=== PATIENT | female | born 1980 | race Caucasian/White ===

== ENCOUNTER 2017-06-18 15:21 | Inpatient (IN) | payer OTHER ==
[2017-06-18] MEDS ORDERED: Ondansetron HCl/PF 4 MG/2 ML Vial IVP PRN ×2 (16:01→17:51)
[2017-06-18] MEDS ORDERED: Promethazine HCl 25 MG/ML VIAL IM PRN ×2 (16:01→17:51)
[2017-06-18] MEDS ORDERED: Acetaminophen 500 MG TAB PO PRN (16:01)
[2017-06-18] MEDS: Lactated Ringer's 1,000 ML IV SCH ×3 (16:07→23:00)
[2017-06-18] MEDS ORDERED: Penicillin G Potassium 5 MILL.UNITS VIAL ONE (16:15)
[2017-06-18 16:28] LABS: Hemoglobin 12.7 g/dL (12.0-16.0); Mean Corpuscular Hemoglobin 32.8 pg (27.0-31.0); Mean Corpuscular Volume 93.8 fl (81.0-99.0); Mean Platelet Volume 8.1 fL (7.4-10.4); Platelet Count 230 thou/uL (130-400); RBC Distribution Width 12.1 % (11.5-14.5); Red Blood Cell (RBC) Count 3.88 mill/uL (4.20-5.40); White Blood Cell (WBC) Count 16.6 thou/uL (4.8-10.8)
[2017-06-18] MEDS ORDERED: Penicillin G Potassium 5 MILL.UNITS in Sodium Chloride 0.9% 100 ML IVPB SCH (16:30)
[2017-06-18 16:44] VITALS: BMI 27.3
[2017-06-18 16:57] LABS: Syphilis Antibody Nonreactive (Nonreactive); Syphilis Antibody Index 0.04 S/CO (<1.00 Non-Reactive)
--- NOTE | 2017-06-18 17:26 | ULT ---
LIMITED OBSTETRICAL ULTRASOUND 06/18/17 COMPARISON: None. HISTORY: Labor, no care. TECHNIQUE: Multiplanar russ scale sonographic imaging of the gravid uterus obtained. FINDINGS: A single intrauterine gestation is present demonstrating a heart rate of 143 beats per minute. The placenta is located in the posterior fundus. presentation is vertex. No evidence for previa or abruption. Gestational age limits assessment of the anatomy. Amniotic fluid index is 7.1 cm . BIOMETRY: BPD 9.8 cm 40 weeks, 0 days HC 34.4 cm 39 weeks, 4 days AC 34.8 cm 38 weeks, 5 days FL 7.3 cm 37 weeks, 2 days Average age based on ultrasound is 39 weeks, 0 days with estimated date of delivery on 06/25/17. Estim ated weight is 3557 grams plus/minus 526 grams. IMPRESSION: Single intrauterine gestation as detailed above. POS: [facility]
[2017-06-18] MEDS ORDERED: Bupivacaine 0.25% HCL 30 ML VIAL ONE (17:28)
[2017-06-18 17:29] LABS: HBSAB Concentration 0.11 mIU/mL; Hep B Surf AB Non-Reactive (NonReactive)
--- NOTE | 2017-06-18 17:39 | HP ---
DATE OF ADMISSION: 06/18/2017 ADMITTING PHYSICIAN: Patricio Panda M.D. CHIEF COMPLAINT: Contractions for 3 days. HISTORY OF PRESENT ILLNESS: This is a 37-year-old white female with an unknown last menstrual period, who presents complaining of laboring for 2-3 days and presents now to the hospital for furthe r management. She has had no care other than a urine test many months ago. She d oes think that she ruptured her membranes 2 days ago, but she denies vaginal bleeding or decreased fe grant movement. PAST MEDICAL HISTORY: Unremarkable. PAST SURGICAL HISTORY: Unremarkable. ALLERGIES: None. CURRENT MEDICATIONS: None. SOCIAL HISTORY: She denies tobacco, alcohol, or drug use. PHYSICAL EXAMINATION: VITAL SIGNS: Stable. She is afebrile. LUNGS: Chest clear to auscultation. CARDIOVASCULAR: Regular rate and rhythm. ABDOMEN: Soft and nontender, gravid. Her uterus appears to be term. Vaginal exam, per labor nurse is 6 cm dilated with a vertex presenting with a bulging bag of water. heart rate tracing is st able with contractions q.2-4 minutes. ASSESSMENT: 1. Suspected labor at term. 2. No care. PLAN: The patient will be admitted. An ultrasound will be obtained. She will be started on antibio tics for group B strep prophylaxis and her labor course will be monitored closely.
[2017-06-18] MEDS ORDERED: Naloxone HCl 0.4 mg/ml Vial IVP PRN ×2 (17:51)
[2017-06-18] MEDS ORDERED: Acetaminophen 325 MG TAB PO PRN (17:51)
[2017-06-18] MEDS ORDERED: ePHEDrine/0.9% NaCl/PF SYRINGE 50 mg/10 ml SLOW IVP PRN (17:51)
[2017-06-18] MEDS ORDERED: Lactated Ringer's 500 ML IV PRN (17:51)
[2017-06-18] MEDS ORDERED: Eucerin (Mineral Oil/Petrolatum,White) 30 gm Jar TOP PRN (17:51)
[2017-06-18] MEDS ORDERED: diphenhydrAMINE 50 MG/ML VIAL IVP PRN (17:51)
[2017-06-18] MEDS: Bupivacaine 0.5% 20 ML, Fentanyl 400 MCG in Sodium Chloride 0.9% 72 ML EPIDURAL SCH ×2 (17:55→23:39)
[2017-06-18] MEDS ORDERED: Fentanyl 4mcg/Marcaine 0.1% Cassette 100 ML EPIDURAL SCH (18:00)
[2017-06-18] MEDS ORDERED: Communication Order-Pharmacy FS SCH (18:00)
--- NOTE | 2017-06-18 19:10 | PRG ---
DATE OF SERVICE: 06/18/2017 SUBJECTIVE: The patient is comfortable with epidural. She had requested this earlier. OBJECTIVE: VITAL SIGNS: Stable. She is afebrile. ABDOMEN: Gravid consistent with term. Ultrasound earlier showed a term fetus with no gross abnormal ities seen. VAGINAL: She was 6 cm on admission, she is examined again. Amniotomy was performed and lightly stai estela meconium fluid was seen. Her vaginal exam is unchanged. heart rate tracing is stable. Th ere is no repetitive decelerations and good beat to beat variability. Uterine contractions are every 2-5 minutes. ASSESSMENT: 1. Term intrauterine in labor. 2. Slow progress. 3. No care. 4. Refusing interventions. PLAN: If this time it has been discussed with her in detail by both me and the nurse practi jason. The risks of declining group B strep prophylaxis. She understands the attendant risks of in fection and sepsis. She will sign a form saying she is declining this. Plan at this time i s to observe her progress after amniotomy and to try to get her to allow us to use Pitocin if she con tinues not progressing.
--- NOTE | 2017-06-18 19:26 | PDOC.EVN ---
Event Note - Event Note Event Note: Consult: Asked by Dr. Panda to speak with Ms. Morejon regarding care for her infant post delivery. Ms. Steele has had no official care (self-reported) with unknown GBS status and prolonged ROM. Ms. Steele reported her water broke Saturday morning (06/16/17) which would put her at ROM > 48 hrs at time of admission to the hospital. She also desires a jodie with delayed cord clamping, non-severance of placenta, and in-room birthing plan. Ms. Steele is currently refusing to be tested for GBS as well as refusing antibiotics should she be GBS positive. Father of baby expressed concern for depletion of baby's probiotics with antibiotic treatment of Ms. Steele prior to delivery and any antibiotics given after delivery. Discussed delayed cord clamping risks and benefits from perspective and would occur based on 's status at time of delivery (delivering physician's decision). We discussed concern for potential GBS infection due to unknown (no treatment) status and prolonged ROM > 48 hrs with additional concern based on parent's preference for placental non- severance after delivery. Discussed at length risk factors and potential long- term outcomes from sepsis including morbitidy and mortality for septic infants. Treatment options discussed including need for sepsis workup with antibiotics and potential resuscitation based on infant's status at delivery and if infant becomes symptomatic. Goal would be for rooming in with mom post delivery if infant's status allows. Followed up with Dr. Panda after speaking with parents regarding our discussion.
--- NOTE | 2017-06-18 20:13 | PDOC.LDPN ---
Labor & Delivery Progress Note - Subjective Subjective: comfortable, other (epidural in place) - Objective Vital signs reviewed and normal: yes General: NAD, resting Uterine fundus: palpable contractions Dilation: 9 cm per labor RN FHT: variability present [place] contractions every: q 2-3 mins. Plan: continue plan of care (Progressing after AROM. has declined GBS prophylaxis, NICU has discussed this with her and she remains resolute despite risks.)
[2017-06-18] MEDS ORDERED: LR / Pitocin 40 units/1000 ml 1,000 ML ONE (20:17)
[2017-06-18] MEDS ORDERED: Lidocaine 1% (PF) 30 ML VIAL ONE (20:18)
[2017-06-18] MEDS: Calcium Carbonate 500 MG ChewTAB PO PRN (20:21)
[2017-06-18] MEDS ORDERED: Misoprostol 200 MCG TAB ONE (21:26)
--- NOTE | 2017-06-18 22:56 | PRG ---
DATE OF SERVICE: 06/18/2017 LABOR AND DELIVERY PROGRESS NOTE SUBJECTIVE: The patient is comfortable with epidural. Her vital signs are stable and she is afebrile. OBJECTIVE: heart tones remained stable with adequate variability. Uterine contractions were seen every 2-4 minutes. Vaginal exam by me shows the cervix to have an anterior lip, which is minimally changed from her exam over 2 hours ago. At this point, she has already declined group B strep prophylaxis and is now declining a Pitocin augmentation. ASSESSMENT: 1. Term intrauterine in labor. 2. Poor progress. 3. Unknown amount of time of ruptured membranes declines group B strep prophylaxis. 4. Meconium-stained fluid. PLAN: At this time, I have spent an extensive amount of time explaining to her the need for group B strep prophylaxis and now in my opinion, the need for Pitocin augmentation. She continues to refuse these interactions. At this point, I have no other choice other than to just expectantly observe her. She and her partner appear to understand the risks of meconium, prolonged rupture of membranes without group B strep prophylaxis and a prolonged labor course. At this time, all I can do is observe. TREVER
[2017-06-19] MEDS: Calcium Carbonate 500 MG ChewTAB PO PRN (00:17)
--- NOTE | 2017-06-19 00:17 | PDOC.LDPN ---
Labor & Delivery Progress Note - Objective Vital signs reviewed and normal: yes General: NAD Dilation: complete and pushing x 15 mins Effacement: 100% Station: 1+ FHT: variable decelerations, variability present [place] contractions every: q 2-4 Plan: other (Continue pushing and observe closely)
[2017-06-19] MEDS ORDERED: LR 500 ML/Oxytocin 10 units 500 ML ONE (01:41)
--- NOTE | 2017-06-19 01:46 | PDOC.LDPN ---
Labor & Delivery Progress Note - Objective Vital signs reviewed and normal: yes General: NAD Dilation: C and P x 2 hours FHT: variable decelerations, variability present [place] contractions every: q 2-3 mins Resuscitative measures: maternal oxygen (Will use 2nd stage pitocin to maximize UCs and push x 1 hour and reassess)
--- NOTE | 2017-06-19 02:28 | PDOC.OPDEL ---
OB Operative/Delivery Note Pre-Delivery Diagnosis: active labor, ruptured membrane, other (No PNC) Procedure/Post Delivery Dx: spontaneous vaginal delivery Anesthesia: epidural - Additional Findings/Plan Placenta delivered: spontaneous Repaired Obstetrical Laceration: vaginal Estimated blood loss: 350 Compilations/Other Findings: Viable female, Apgars 9/9 NICU personel present to assess. Small midline and right periurethral lacerations repaired in layers. Post delivery plan: routine recovery
[2017-06-19] MEDS ORDERED: LR / Pitocin 40 units/1000 ml 1,000 ML IV PRN (02:29)
[2017-06-19] MEDS ORDERED: Lidocaine 1% (PF) 30 ML VIAL SC PRN (02:29)
[2017-06-19] MEDS ORDERED: LR 500 ML/Oxytocin 10 units 500 ML IV SCH (02:30)
[2017-06-19] MEDS ORDERED: Milk Of Magnesia 30 ML UDCUP PO PRN (02:31)
[2017-06-19] MEDS ORDERED: Bisacodyl 10 MG SUPP PR PRN (02:31)
[2017-06-19] MEDS ORDERED: Adacel (T-DAP) 0.5 ML VIAL IM ONE (02:31)
[2017-06-19] MEDS ORDERED: LR / Pitocin 40 units/1000 ml 1,000 ML IV SCH (02:45)
[2017-06-19] MEDS: Penicillin G Potassium 2.5 MILL.UNITS in Sodium Chloride 0.9% 100 ML IVPB SCH ×5 (05:53→18:42)
[2017-06-19 06:09] LABS: Mean Corpuscular HGB CONC 34.4 g/dL (32.0-36.0); Mean Corpuscular Hemoglobin 32.9 pg (27.0-31.0); Mean Corpuscular Volume 95.5 fl (81.0-99.0); Mean Platelet Volume 7.9 fL (7.4-10.4); Platelet Count 204 thou/uL (130-400); Red Blood Cell (RBC) Count 3.35 mill/uL (4.20-5.40); White Blood Cell (WBC) Count 15.2 thou/uL (4.8-10.8)
[2017-06-19] MEDS: Ibuprofen 800 MG TAB PO SCH ×3 (07:37→21:08)
--- NOTE | 2017-06-19 08:14 | PDOC.EVN ---
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 Day 0 Case reviewed. Patient s/p at 0300 this AM (approximate). Vitals reviewed-stable. No acute needs at this time.
[2017-06-19] MEDS: Ferrous Sulfate 325 MG TAB PO SCH ×2 (08:28→18:42)
[2017-06-19] MEDS: Docusate Calcium (SURFAK) 240 MG CAP PO SCH ×2 (09:31→21:08)
[2017-06-19 11:05] LABS: HIV (1/2) Antibody/Antigen Non-Reactive (NonReactive); HIV 1/2 INDEX 0.19 S/CO (<1.00)
[2017-06-19] MEDS: Lactated Ringer's 1,000 ML IV SCH (18:42)
[2017-06-19] MEDS: Acetaminophen/Codeine 30-300mg Tablet PO PRN (21:08)
[2017-06-20] MEDS: Penicillin G Potassium 2.5 MILL.UNITS in Sodium Chloride 0.9% 100 ML IVPB SCH ×5 (02:22→17:46)
[2017-06-20] MEDS: Lactated Ringer's 1,000 ML IV SCH ×3 (02:23→15:29)
--- NOTE | 2017-06-20 06:20 | PDOC.PP ---
Post Progress Note Post Day #: 1 Subjective: Patient states she is feeling well, no new issues overnight. Resting this AM PO intake tolerated: yes Flatus: yes Ambulation: yes Vital Signs (12 hours) Temp Pulse Resp 06/19/17 20:00 98.4 F 71 18 Weight Weight 185 lb - Physical Examination General: NAD Cardiovascular: no m/r/g Abdominal: + bowel sounds Fundus firm & at: -1 Umbilicus Extremities: negative homans (B) Perineum: Deferred Neurological: no gross focal deficits Psychiatric: A&Ox3, normal affect Result Diagrams: 06/19/17 05:42 Additional Labs: Post Labs Blood Type O POSITIVE 06/18/17 16:00 (1) Vaginal delivery Code(s): O80 - ENCOUNTER FOR FULL-TERM UNCOMPLICATED DELIVERY Status: Acute - Assessment/Plan Patient now postpatum day 1 doing well. Afebrile and HCT normal. We will obs today and set for likely discahrge tomorrow AM.
[2017-06-20] MEDS: Ibuprofen 800 MG TAB PO SCH ×3 (06:25→21:25)
[2017-06-20] MEDS: Ferrous Sulfate 325 MG TAB PO SCH ×2 (08:11→17:46)
[2017-06-20] MEDS: Docusate Calcium (SURFAK) 240 MG CAP PO SCH ×2 (08:47→21:25)
[2017-06-20] MEDS: Acetaminophen/Codeine 30-300mg Tablet PO PRN ×2 (12:00→17:43)
[2017-06-21] MEDS: Acetaminophen/Codeine 30-300mg Tablet PO PRN ×2 (00:26→09:03)
[2017-06-21] MEDS: Lactated Ringer's 1,000 ML IV SCH ×2 (02:08→08:33)
[2017-06-21] MEDS: Penicillin G Potassium 2.5 MILL.UNITS in Sodium Chloride 0.9% 100 ML IVPB SCH ×3 (02:08→08:33)
[2017-06-21] MEDS: Ibuprofen 800 MG TAB PO SCH ×2 (05:54→13:58)
[2017-06-21 07:54] VITALS: BP 119/73; TEMP 98.5
[2017-06-21] MEDS: Ferrous Sulfate 325 MG TAB PO SCH (08:33)
[2017-06-21] MEDS: Docusate Calcium (SURFAK) 240 MG CAP PO SCH (09:03)
[2017-06-21] MEDS ORDERED: Penicillin V Potassium 250 MG TAB PO SCH ×2 (10:00→15:00)
--- NOTE | 2017-06-21 10:57 | DIS ---
DATE OF ADMISSION: 06/18/2017 DATE OF DISCHARGE: 06/21/2017 ADMITTING DIAGNOSES: Labor and no care. DISCHARGE DIAGNOSIS: Term spontaneous vaginal delivery. HOSPITAL COURSE: The patient is a 37-year-old female, who presented to labor and delivery in active labor, who had not had any care. The patient's hospital course has been uncomplicated. She had a term spontaneous vaginal delivery without complications. Her course has been uncom plicated. She is now day #2 and has no complaints. She reports she is tolerating p.o., v oiding on her own, having decreased lochia. OBJECTIVE: VITAL SIGNS: Today, blood pressure is 119/73, heart rate of 54, temperature 98.5, respiratory rate o f 18. GENERAL: She appears to be in no acute distress. She is alert, oriented, cooperative and pleasant t o interact with. HEENT: Normocephalic, atraumatic. ABDOMEN: Fundus is firm. EXTREMITIES: Nontender, nonedematous. The patient is being discharged to home. She has instructions to follow up with [facility] [place] in 6 weeks or an [facility]ER or OB provider of her preference. The patient will be discharged to home with ibuprofen p.r.n. for pain. She has instructions to seek medical attention should she expe rience increasing pain, fever or bleeding.
== END 2017-06-21 16:43 | disposition home or self-care (01) | DRG 775 ==
LOC: L&D/OP 15:21 → L&D 16:28 → 3SW 06-19 05:13
PROVIDERS: ADMIT Obstetrics & Gynecology; ATTEND Obstetrics & Gynecology
PROC: 10E0XZZ Delivery of Products of Conception, External Approach (ICD-10-PCS; principal; 2017-06-19)
PROC: 0UQMXZZ Repair Vulva, External Approach (ICD-10-PCS; 2017-06-19)
PROC: 10907ZC Drainage of Amniotic Fluid, Therapeutic from Products of Conception, Via Natural or Artificial Opening (ICD-10-PCS; 2017-06-19)
DX: O42.12 Full-term premature rupture of membranes, onset of labor more than 24 hours following rupture (principal); O63.9 Long labor, unspecified; O77.0 Labor and delivery complicated by meconium in amniotic fluid; O71.82 Other specified trauma to perineum and vulva; O76 Abnormality in fetal heart rate and rhythm complicating labor and delivery; O48.0 Post-term pregnancy; Z3A.40 40 weeks gestation of pregnancy; Z37.0 Single live birth
CPT/HCPCS: 36415; 51702; 76815; 85027; 86706; 86762; 86780; 86850; 86900; 86901; 87389; 99285; J2001; J2540; J3010; J3490; J7050; J7120; S0020